=== PATIENT | female | born 1995 | race Caucasian/White ===

== ENCOUNTER → 2016-08-21 | Outpatient (CLI) | payer BC ==
--- NOTE | 2016-08-21 13:30 | EKG ---
[address] [address] Measurements Intervals [place] Rate: 76 P: 45 WY: 173 QRS: 59 QRSD: 86 T: 42 QT: 372 QTc: 402 Interpretive Statements SINUS RHYTHM No previous ECG available for comparison Electronically Signed On 08-21-16 15:45:04 MDT by Wilmer Carroll [id number]
[2016-08-21 14:10] LABS: BASOPHILS # (AUTO) 0.03 10*3/UL; BASOPHILS % (AUTO) 0.5 % (0-1); EOSINOPHILS # (AUTO) 0.03 10*3/UL; EOSINOPHILS % (AUTO) 0.5 % (0-8); HEMATOCRIT 41.5 % (37.0-47.0); HEMOGLOBIN 14.3 g/dL (12.0-16.0); LYMPHOCYTES # (AUTO) 1.14 10*3/uL; MEAN CORPUSCULAR HGB CONC 34.5 g/dL (33-37); MEAN CORPUSCULAR VOLUME 87.2 FL (81-99); MEAN PLATELET VOLUME 10.5 FL (7.4-12.2); MONOCYTES # (AUTO) 0.79 10*3/UL (0.3-0.8); MONOCYTES % (AUTO) 12.5 % (5-15); NEUTROPHILS # (AUTO) 4.31 10*3/UL; NEUTROPHILS % (AUTO) 68.2 % (50-80); RED BLOOD COUNT 4.76 10^6/uL (4.20-5.40)
[2016-08-21 14:12] LABS: PLATELET MORPHOLOGY COMMENT NORMAL MORPHOLOGY (NORM); RBC MORPHOLOGY COMMENT NORMAL MORPHOLOGY (NORM); WBC MORPHOLOGY COMMENT NORMAL MORPHOLOGY (NORM)
[2016-08-21 14:18] LABS: BLOOD UREA NITROGEN 10 mg/dL (7-22); BUN/CREATININE RATIO 14.28 (6-20); CALCIUM 9.1 mg/dL (8.7-10.7); EST GLOMERULAR FILTRATION > 60 (>60 ml/min/1.73m(2)); SERUM ALBUMIN 4.4 g/dL (3.5-4.8)
== END ==
LOC: MOB LAB 13:30
PROVIDERS: ATTEND Physician Assistant Medical
DX: R42 Dizziness and giddiness (principal); R51 Headache
CPT/HCPCS: 36415; 80053; 84443; 85025; 93005; 93010

== ENCOUNTER 2018-02-24 18:52 | Observation (INO) ==
[2018-02-24 20:55] LABS: Hematocrit [HCT] 37.4 % (37.0-47.0); Hemoglobin [HGB] 13.2 g/dL (12.0-16.0); MEAN CORPUSCULAR HEMOGLOBIN 31.1 PG (27-31); MEAN CORPUSCULAR HGB CONC 35.3 g/dL (33-37); MEAN CORPUSCULAR VOLUME 88.2 FL (81-99); MEAN PLATELET VOLUME 10.6 FL (7.4-12.2); RED BLOOD COUNT 4.24 10^6/uL (4.20-5.40)
[2018-02-24] MEDS: Sodium Chloride 0.9% 1,000 ML PRIMARY IV ONE ×2 (21:00→22:00)
[2018-02-24 21:03] LABS: BLOOD UREA NITROGEN 7 mg/dL (7-22); BUN/CREATININE RATIO 11.66 (6-20); SERUM ALBUMIN 3.2 g/dL (3.5-4.8); Uric Acid 4.8 mg/dl (2.5-6.2)
[2018-02-24] MEDS ORDERED: TERBUTALINE SULFATE 1 MG/1 ML SDV ONE (23:49)
[2018-02-24] MEDS ORDERED: TERBUTALINE SULFATE 1 MG/1 ML SDV SUBCUT ONE (23:49)
[2018-02-25] MEDS ORDERED: LIDOCAINE W/ SODIUM BICARB 0.5 ML SYR SUBD PRN (07:25)
[2018-02-25] MEDS ORDERED: CALCIUM CARBONATE 500 MG (TUMS) CHEWABLE TABLET PO PRN (07:25)
[2018-02-25] MEDS ORDERED: Ondansetron ODT Tab 4 MG TAB PO PRN (07:25)
--- NOTE | 2018-02-25 07:25 | OB.PROGRES ---
Date of Service: 02/25/18 Interval History: The patient is a 22-year-old LMP is at 35 and one sevenths week who has an TRAY of 03/31/2018 by her LMP but also has a due date of 04/05/2018 by an ultrasound done several weeks ago in [place], [place]. The patient has a history during this and proteinuria and also edema of . Last evening, the patient presented to labor and delivery with the complaint of increased swelling and pelvic pain and contractions. No headache. No right upper quadrant pain. No blurred vision. The patient's initial blood pressure was 150/84 and next blood pressure was 144/ 95. The patient was also found to be steve with a category 1 heart rate tracing. IV fluids were administered and then the patient was given 1 dose of subcutaneous terbutaline to try to stop the contractions. Overnight, the patient has not developed a headache. The patient states that her cramping is slightly decreased. No vaginal bleeding. No leak of fluid. Baby has been moving. Patient was just seen 2 days ago in labor and delivery after seeing me in clinic. The patient stated that she had not been feeling well for a week. Nonstress test was reactive, ultrasound showed a normal JUSTIN and a growth scan which was scheduled for tomorrow was also completed 2 days ago and was the 89th percentile with EFW just slightly less than 3000 g or 6 lbs. 9 oz. Previously, a growth scan was completed and the EFW was 90th percentile. Past medical history noncontributory Past surgical history wisdom teeth extraction The patient states that she is allergic to antihistamines. She gets swelling and redness and also she becomes overly sedated. No tobacco, occasional alcohol before finding out she was . None since. No drugs. The patient believes she had a Pap smear prior to her IUD placed. IUD was removed last year and then several months later she conceived. No significant family history problems Objective - Cervical Exam Cervical Exam: Fingertip, soft, I could not determine effacement. By Salvador's , the baby is in cephalic presentation [place]: Irregular contractions Heart Rate Interpretation Category: Category I - Labs CBC and BMP: 02/24/18 20:48 02/24/18 20:48 - Vital Signs Last Taken Vital Signs: Vital Signs - Last Taken Temperature 98.0 F 02/24/18 19:07 Pulse Rate 92 02/24/18 19:40 Respiratory Rate 18 02/24/18 19:07 Blood Pressure 144/95 02/24/18 19:40 Pulse Ox 98 02/24/18 19:07 - Additional Details Additional Details: Lungs clear to auscultation Heart regular rate and rhythm Abdomen is gravid, soft, nontender, no guarding or rebound. Extremities have 2+ pitting edema bilaterally, no Homans, Reflexes are 3+ bilaterally. No clonus. The patient definitely appears edematous and the patient complains of edema in her hands and arms also. Assessment and Plan - Assessment / Plan Additional Assessment/Plan Details: Assessment: IUP 35-06/07 week with preeclampsia without signs or symptoms of severe preeclampsia currently. Labs show hemoconcentration with an H&H of 13 and 37 and platelets are normal, liver function tests are normal and creatinine is 0.6. Blood pressures 150/84, 144/95, 143/86, 121/88, and then patient has also had some normal blood pressures of 124/83 and 127/75 and 119/81 while in bed in the left lateral supine position or right lateral supine position. The patient does not have a headache or right upper quadrant pain. Patient did have significant contractions last night and IV fluids and one dose of subcutaneous terbutaline has decreased the frequency. The patient's cervix is only a fingertip dilated. The patient has not been feeling well intermittently for several weeks and presented 2 days ago not feeling well for previous week. Labs were completed and the patient showed hemoconcentration but otherwise normal. Platelets were normal. Liver function tests were normal and blood pressures were normal at that time. Reactive nonstress test. EFW is the 89th 90th percentile with the last EFW just slightly less than 3000 g or 6 lbs. 9 oz. which was completed 2 days ago on 02/23/2018. Plan: The patient will be admitted for observation Betamethasone 12 mg IM now and then repeat in 24 hours. The patient and I discussed the indication for the betamethasone for lung maturity. This baby is thought to be a girl. We discussed that there are minimal risk for steroid administration for 1 course. lung maturity may improved with the administration. Additionally necrotizing enterocolitis and interventricular hemorrhage risks can be improved but these do not occur as frequently in a late versus an early infant. This was explained to the patient. Also the patient may have some difficulty sleeping secondary to the steroid administration. The patient expressed understanding. Repeat labs in the morning Initially, clear liquids but regular diet if the blood pressures remain stable. I will not tocolyse the patient currently since I do not want to mask severe blood pressures. Also, the patient's cervix is a fingertip dilated. I did discuss with the patient that if she were to go into labor or develops preeclampsia with severe signs or symptoms at 35+ weeks that I would speak with pediatrics but most likely the patient will be transferred to [facility] where there is a NICU. The patient expressed understanding. The patient expressed understanding with the above plan and indications for admission for observation and for the [place] and for blood pressure observation.
[2018-02-25] MEDS ORDERED: Lactated Ringers 1,000 ML PRIMARY IV SCH (07:30)
[2018-02-25] MEDS: BETAMET ACET/BETAMET NA PH 6 MG/1 ML - 5 ML IM SCH (08:01)
[2018-02-25] MEDS: Lactated Ringers 1,000 ML PRIMARY IV SCH (14:21)
[2018-02-25] MEDS: ONDANSETRON 4 MG/2 ML VIAL IVP PRN (15:54)
[2018-02-25 16:06] VITALS: RESP 16
[2018-02-25] MEDS ORDERED: ACETAMINOPHEN 500 MG TABLET PO PRN (17:10)
[2018-02-26] MEDS: Lactated Ringers 1,000 ML PRIMARY IV SCH (01:30)
[2018-02-26] MEDS: ONDANSETRON 4 MG/2 ML VIAL IVP PRN (03:59)
[2018-02-26 04:49] LABS: Hematocrit [HCT] 35.2 % (37.0-47.0); Hemoglobin [HGB] 12.1 g/dL (12.0-16.0); MEAN CORPUSCULAR HEMOGLOBIN 30.6 PG (27-31); MEAN CORPUSCULAR HGB CONC 34.4 g/dL (33-37); MEAN CORPUSCULAR VOLUME 89.1 FL (81-99); MEAN PLATELET VOLUME 10.6 FL (7.4-12.2); RED BLOOD COUNT 3.95 10^6/uL (4.20-5.40)
[2018-02-26 04:55] VITALS: TEMP 97.6
[2018-02-26 05:20] LABS: BLOOD UREA NITROGEN 5 mg/dL (7-22); Uric Acid 4.2 mg/dl (2.5-6.2)
[2018-02-26 06:44] VITALS: BP 115/61
[2018-02-26 06:47] VITALS: O2SAT 99
[2018-02-26] MEDS: BETAMET ACET/BETAMET NA PH 6 MG/1 ML - 5 ML IM SCH (07:33)
[2018-02-26] MEDS ORDERED: Prenatal Multivitamin Tab 1 TAB TAB PO SCH (09:00)
--- NOTE | 2018-02-26 10:37 | OB.PROGRES ---
Date of Service: 02/26/18 Interval History: The patient states that she is doing okay. She has had an occasional headache over the past 24 hours but Tylenol helped resolve it. No right upper quadrant pain. She has noted that her left arm and hand is swollen. They did attempt to do an IV in her left hand before the left antecubital vein was obtained. The patient states that her left arm is much more swollen than her right arm. The patient also has noticed increase in swelling in her legs in the nurse informed me that the patient had a 5 pound weight gain from admission to this morning. The patient is drinking well. The patient continues to have intermittent contractions. No bleeding. No leak of fluid. Some lower back pain with contractions and sometimes the back pain is constant. The patient is concerned about going home secondary to not knowing if her blood pressures are elevating but also secondary to her contractions. Objective - Cervical Exam Cervical Exam: Finger Tip and soft. [place]: Intermittent runs of contractions but otherwise irregular Heart Rate Interpretation Category: Category I - Labs CBC and BMP: 02/26/18 04:25 02/26/18 04:25 - Vital Signs Last Taken Vital Signs: Vital Signs - Last Taken Temperature 97.6 F 02/26/18 04:00 Pulse Rate 100 02/26/18 06:20 Respiratory Rate 16 02/26/18 04:00 Blood Pressure 115/61 02/26/18 06:00 Pulse Ox 99 02/26/18 06:20 - Additional Details Additional Details: Lungs clear to auscultation Heart regular rate and rhythm Abdomen is gravid, soft, nontender, by Salvador's cephalic presentation. Lower Extremities with 2+ pitting edema bilaterally. Left upper extremity with edema in the hand dorsally and the forearm compared to the right upper extremity; no pitting edema but definitely edematous. Reflexes 3+ bilaterally patellar and no clonus Negative Homans and lower extremities Assessment and Plan - Assessment / Plan Additional Assessment/Plan Details: Assessment: IUP 35-2/7 weeks with preeclampsia without signs or symptoms of severe preeclampsia. Blood pressures have been normal on the left sided or right sided bedrest. The patient had one blood pressure of 149/87. No blood pressures 160/110 or above. Most blood pressures have been in the normal range. The patient has had intermittent mild headaches but resolved with Tylenol. Labs this morning show that the platelets are 185,000 which is decreased but still normal. H&H is 12 and 35 which is slightly improved hemoconcentration from admission. Creatinine is 0.4 which is normal and slightly decreased from admission. Liver function tests are normal. The patient's cervix has not really changed from yesterday morning's exam 2 this morning even though the patient has had intermittent contractions. Most likely, the contractions or uterine irritability since the patient's cervix is not changing. The patient's left upper extremity is edematous. I doubt that there is a DVT but I'm going to get an ultrasound since it is significantly more edematous than the right upper extremity. The patient's lower extremities are symmetric. Plan: I would like to get an ultrasound of the patient's left upper extremity to rule out a DVT. I realized that this is unlikely but the left upper extremity is much more edematous than the right upper extremity. The Patient's IV will be discontinued. I spoke with the patient about continuing to observe the patient for one more day versus sending the patient home on bedrest with bathroom privileges. The patient relates that she is concerned about her blood pressures but also about her contractions. I informed the patient that I was more concerned about her blood pressures but we would follow her blood pressures closely and the patient would be given strict precautions to look for and observe for an return if those symptoms occur. With respect to the contractions, I informed the patient that I was not as concerned with these since the patient's cervix did not change but if the patient started to have regular contractions that were painful that were not resolving, the patient should present to labor and delivery. The patient expressed understanding. We will check with the patient's insurance to determine if they would allow us to observe the patient for one more day in the hospital to observe the patient' s blood pressures since the patient does have a diagnosis of preeclampsia. I would obtain labs tomorrow morning if the patient did stay.
--- NOTE | 2018-02-26 14:05 | DI ---
DOPPLER ULTRASOUND OF THE LEFT UPPER EXTREMITY,02/26/2018 10:43 AM: Clinical History: Left upper extremity edema, IUP 35 2/7 wks Previous Exam: None at this facility. Technique: 2D real-time imaging is supplemented with color Doppler ultrasound from the proximal forea rm to the subclavian vein. Compression maneuvers and augmentation with the "sniff" technique and the Valsalva maneuver are performed. The deep venous system from the proximal forearm to the subclavian vein is normal. The cephalic vein is also normal. Reading: Normal venous Doppler ultrasound of the left upper extremity.
--- NOTE | 2018-02-26 17:10 | OB.PROGRES ---
Objective - Labs CBC and BMP: 02/26/18 04:25 02/26/18 04:25 - Vital Signs Last Taken Vital Signs: Vital Signs - Last Taken Temperature 97.6 F 02/26/18 04:00 Pulse Rate 100 02/26/18 07:00 Respiratory Rate 16 02/26/18 04:00 Blood Pressure 115/61 02/26/18 06:00 Pulse Ox 99 02/26/18 06:20 Assessment and Plan - Assessment / Plan Additional Assessment/Plan Details: The patient's Doppler of her left upper extremity was negative for DVT. The patient desired to go home and was sent home with strict precautions and return tomorrow morning for a nonstress test and blood pressure checks.
--- NOTE | 2018-02-26 17:14 | DCSUMMARY ---
Hospitalization Summary Admit Date: 02/25/18 Discharge Date: 02/26/18 Primary Diagnosis:: IUP 35-2/7 weeks, preeclampsia Secondary Diagnosis:: Preeclampsia without signs or symptoms of severe preeclampsia contractions Primary Surgery and Date: Patient undelivered. Hospital Course: Assessment: IUP 35-2/7 weeks with preeclampsia without signs or symptoms of severe preeclampsia. Blood pressures have been normal on the left sided or right sided bedrest. The patient had one blood pressure of 149/87. No blood pressures 160/110 or above. Most blood pressures have been in the normal range. The patient has had intermittent mild headaches but resolved with Tylenol. Labs this morning show that the platelets are 185,000 which is decreased but still normal. H&H is 12 and 35 which is slightly improved hemoconcentration from admission. Creatinine is 0.4 which is normal and slightly decreased from admission. Liver function tests are normal. The patient's cervix has not really changed from yesterday morning's exam 2 this morning even though the patient has had intermittent contractions. Most likely, the contractions or uterine irritability since the patient's cervix is not changing. The patient's left upper extremity is edematous. I doubt that there is a DVT but I'm going to get an ultrasound since it is significantly more edematous than the right upper extremity. The patient's lower extremities are symmetric. Plan: I would like to get an ultrasound of the patient's left upper extremity to rule out a DVT. I realized that this is unlikely but the left upper extremity is much more edematous than the right upper extremity. The Patient's IV will be discontinued. I spoke with the patient about continuing to observe the patient for one more day versus sending the patient home on bedrest with bathroom privileges. The patient relates that she is concerned about her blood pressures but also about her contractions. I informed the patient that I was more concerned about her blood pressures but we would follow her blood pressures closely and the patient would be given strict precautions to look for and observe for an return if those symptoms occur. With respect to the contractions, I informed the patient that I was not as concerned with these since the patient's cervix did not change but if the patient started to have regular contractions that were painful that were not resolving, the patient should present to labor and delivery. The patient expressed understanding. We will check with the patient's insurance to determine if they would allow us to observe the patient for one more day in the hospital to observe the patient' s blood pressures since the patient does have a diagnosis of preeclampsia. I would obtain labs tomorrow morning if the patient did stay. Exam - Vitals Vital Signs: Vital Signs Temperature 97.6 F Temperature Source Oral Pulse Rate [Pulse Oximeter] 100 Pulse Rate 111 Respiratory Rate 16 Blood Pressure [Right Arm] 115/61 Pulse Ox 99 Oxygen Delivery Method Room Air Height 5 ft 4 in Weight 227 lb 6.4 oz
== END 2018-02-26 14:10 | disposition home or self-care (01) ==
LOC: OBOP 18:52 → OBIP 18:52
PROVIDERS: ADMIT Obstetrics & Gynecology; ATTEND Obstetrics & Gynecology

== ENCOUNTER 2018-03-09 09:14 | Inpatient (IN) ==
[2018-03-09] MEDS ORDERED: FAMOTIDINE 20 MG/2 ML VIAL IVP PRN ×2 (15:05)
[2018-03-09] MEDS ORDERED: BUTORPHANOL TARTRATE 2 MG/1 ML VIAL IVP PRN (15:05)
[2018-03-09] MEDS ORDERED: Zolpidem Tab 5 MG TAB PO PRN (15:05)
[2018-03-09] MEDS ORDERED: Carboprost Inj 250 MCG/ML AMP IM PRN (15:05)
[2018-03-09] MEDS ORDERED: CefOXitin Inj 2 GM in Sodium Chloride 0.9% 100 ML IV PRN (15:05)
[2018-03-09] MEDS ORDERED: CITRIC ACID/SODIUM CITRATE 30 ML CUP PO PRN (15:05)
[2018-03-09] MEDS ORDERED: Phenylephrine Inj 50 MCG in Normal Saline Flush 0.5 ML IVP PRN (15:05)
[2018-03-09] MEDS ORDERED: Naloxone Inj 0.01 MG in Normal Saline Flush 1 ML IVP PRN (15:05)
[2018-03-09] MEDS ORDERED: Nalbuphine Inj 20 MG/ML Ampule IVP PRN (15:05)
[2018-03-09] MEDS ORDERED: TERBUTALINE SULFATE 1 MG/1 ML SDV SUBCUT PRN (15:05)
[2018-03-09] MEDS ORDERED: METHYLERGONOVINE MALEATE 0.2 MG/1 ML VIAL IM PRN (15:05)
[2018-03-09] MEDS ORDERED: Metoclopramide Inj 10 MG/2 ML VIAL IV PRN (15:05)
[2018-03-09] MEDS ORDERED: fentaNYL Inj 100 MCG/2 ML VIAL IV PRN (15:05)
[2018-03-09] MEDS ORDERED: ePHEDrine Inj 5 MG in Normal Saline Flush 1 ML IVP PRN (15:05)
[2018-03-09] MEDS ORDERED: CALCIUM CARBONATE 500 MG (TUMS) CHEWABLE TABLET PO PRN (15:05)
[2018-03-09] MEDS ORDERED: ONDANSETRON 4 MG/2 ML VIAL IVP PRN (15:05)
[2018-03-09] MEDS ORDERED: Lidocaine 1% 10 MG/ML - 20 ML VIAL SUBCUT PRN (15:05)
[2018-03-09] MEDS ORDERED: NALOXONE 0.4 MG/1 ML VIAL IVP PRN (15:05)
[2018-03-09] MEDS ORDERED: LIDOCAINE HCL 2 % 10 ML JELLY URO-JECT TOPICAL PRN (15:05)
[2018-03-09] MEDS ORDERED: MISOPROSTOL 200 MCG TABLET RECTAL PRN (15:05)
[2018-03-09] MEDS ORDERED: diphenhydrAMINE 50 MG/1 ML VIAL IVP PRN (15:05)
[2018-03-09] MEDS ORDERED: LIDOCAINE W/ SODIUM BICARB 0.5 ML SYR SUBD PRN (15:05)
[2018-03-09] MEDS ORDERED: OXYTOCIN 10 UNIT/1 ML IM PRN (15:05)
[2018-03-09] MEDS ORDERED: Oxytocin 20 Units + LR 20 UNIT/1,000 ML BAG IV SCH (15:15)
[2018-03-09 16:03] LABS: Hematocrit [HCT] 39.5 % (37.0-47.0); Hemoglobin [HGB] 14.2 g/dL (12.0-16.0); MEAN CORPUSCULAR HEMOGLOBIN 31.3 PG (27-31); MEAN CORPUSCULAR HGB CONC 35.9 g/dL (33-37); MEAN PLATELET VOLUME 10.8 FL (7.4-12.2); RED BLOOD COUNT 4.54 10^6/uL (4.20-5.40)
[2018-03-09] MEDS: Misoprostol Tab 100 MCG TAB VAGINAL PRN (16:14)
[2018-03-09] MEDS: Lactated Ringers-OB Dept 1,000 ML PRIMARY IV SCH (16:46)
--- NOTE | 2018-03-09 17:32 | OB.PROGRES ---
Date of Service: 03/09/18 Interval History: The patient is a 23-year-old at 36-6/7 weeks admitted for cervical ripening and induction of labor secondary to preeclampsia without signs or symptoms of severe preeclampsia. The patient denies right upper quadrant pain or headache. The patient's has essentially been uncomplicated until she developed edema then proteinuria and recently elevated blood pressures. The patient was admitted less than 2 weeks ago and was administered a course of betamethasone for lung maturity. At that time the patient did not have severe blood pressures but the patient's blood pressures were labile but never in the severe range. The patient now presents for cervical ripening and induction of labor secondary to the above. The patient has also been measuring size greater than dates and the last EFW was 2 weeks ago and measuring 3000 g or about 6 lbs. 9 oz. Over the past week and a half to 2 weeks the patient has been on couch rest at home and actually has lost 10 pounds of fluid. Past medical history noncontributory Past surgical history wisdom teeth extraction The patient states that she is allergic to antihistamines. She gets swelling and redness. Also oversedation. No tobacco, occasional alcohol before finding out she was . None since. No drugs. The patient believes she had a Pap smear prior to her IUD placed. IUD was removed last year and then several months later she conceived. No significant family history problems. Objective - Cervical Exam Cervical Exam: 50/-2 cephalic [place]: After Cytotec administration there is uterine irritability present Heart Rate Interpretation Category: Category I - Labs CBC and BMP: 03/09/18 15:05 - Vital Signs Last Taken Vital Signs: Vital Signs - Last Taken Temperature 97.5 F 03/09/18 15:42 Pulse Rate 104 H 03/09/18 15:42 Respiratory Rate 18 03/09/18 15:42 Blood Pressure 138/69 03/09/18 15:42 Pulse Ox 98 03/09/18 15:42 - Additional Details Additional Details: Lungs clear to auscultation Heart regular rate and rhythm Abdomen is soft, gravid, nontender Patellar reflexes bilaterally were 2+ No clonus 1+ to 2+ edema bilaterally lower extremity Assessment and Plan - Assessment / Plan Additional Assessment/Plan Details: Assessment: IUP 36-6/7 weeks with preeclampsia without signs or symptoms of severe preeclampsia. Patient was admitted today for cervical ripening. Cervix was 1 cm/50%/-2 station. EFW has been around the 90th percentile. Plan: Patient admitted for cervical ripening with Cytotec I have discussed with the patient that the baby is fairly high and hasn't been in the mom's pelvis. I have discussed with the patient that we will see how cervical ripening does and how induction of labor goes with respect to a possible vaginal delivery. We have discussed that there is a slightly increased risk for section secondary to induction of labor but also secondary to the estimated weight percentile 90th percentile. The patient 's mother has had 4 sections. A CBC and CMP as well as type and screen were completed. The patient's H&H is 14 and 39 and the patient's platelets are normal at 242. CMP is pending. In my office we have discussed the risks, benefits, alternatives and indication of a section. SCDs while in bed
[2018-03-09 17:38] LABS: BLOOD UREA NITROGEN 8 mg/dL (7-22); SERUM ALBUMIN 3.6 g/dL (3.5-4.8)
[2018-03-10] MEDS: Lactated Ringers-OB Dept 1,000 ML PRIMARY IV SCH ×2 (01:56→18:22)
--- NOTE | 2018-03-10 08:27 | OB.PROGRES ---
Date of Service: 03/10/18 Interval History: The patient can feel some cramping but no significant contractions. She slept intermittently last night. No headache. No right upper quadrant pain. Baby is moving. Objective - Cervical Exam Cervical Exam: 1-2/50/-3. Minimal dark blood on my glove digit after exam. Membranes could not be swept because the internal os could not be palpated well [place]: Irritability Heart Rate Interpretation Category: Category I - Labs CBC and BMP: 03/09/18 15:05 03/09/18 16:45 - Vital Signs Last Taken Vital Signs: Vital Signs - Last Taken Temperature 97.6 F 03/10/18 07:30 Pulse Rate 79 03/10/18 07:30 Respiratory Rate 18 03/10/18 07:30 Blood Pressure 117/75 03/10/18 07:30 Pulse Ox 99 03/10/18 07:30 Assessment and Plan - Assessment / Plan Additional Assessment/Plan Details: Assessment: IUP 37 weeks with preeclampsia without signs or symptoms of severe preeclampsia. The patient's blood pressures have been normal. Labs yesterday were normal except for H&H was hemoconcentrated. Normal liver function tests and normal renal function tests. Normal platelets. Cervical ripening with 1 dose of Cytotec allow for uterine irritability for many hours but minimal cervical change. Group B strep negative EFW was 90th percentile Plan: Cytotec 25 g will be placed this morning after the patient showers Continue cervical ripening The patient and I have discussed that cervical ripening and induction of labor can take several days. Patient expressed understanding.
[2018-03-10] MEDS: Misoprostol Tab 100 MCG TAB VAGINAL PRN (09:22)
--- NOTE | 2018-03-10 15:01 | OB.PROGRES ---
Objective - Labs CBC and BMP: 03/09/18 15:05 03/09/18 16:45 - Vital Signs Last Taken Vital Signs: Vital Signs - Last Taken Temperature 98 F 03/10/18 11:30 Pulse Rate 101 H 03/10/18 10:35 Respiratory Rate 18 03/10/18 11:30 Blood Pressure 119/69 03/10/18 10:35 Pulse Ox 98 03/10/18 11:00 Assessment and Plan - Assessment / Plan Additional Assessment/Plan Details: IUP 37 weeks with preeclampsia without signs or symptoms of severe preeclampsia. Cytotec for cervical ripening. Patient received her second dose this morning and currently she is steve regularly and can feel them but they do not hurt. Patient states she is doing well. Cervix not checked currently. Blood pressures have been good. Plan: I will check the patient's cervix after my office hours. Reevaluate at that time.
--- NOTE | 2018-03-10 17:01 | OB.PROGRES ---
Interval History: The patient states she can feel some contractions but they are not painful. No headache. No right upper quadrant pain. Objective - Cervical Exam Cervical Exam: 1-250/-3. I could not reach the baby's head but the baby is in the cephalic presentation. Heart Rate Interpretation Category: Category I - Labs CBC and BMP: 03/09/18 15:05 03/09/18 16:45 - Vital Signs Last Taken Vital Signs: Vital Signs - Last Taken Temperature 98.1 F 03/10/18 14:45 Pulse Rate 84 03/10/18 14:45 Respiratory Rate 18 03/10/18 14:45 Blood Pressure 119/69 03/10/18 10:35 Pulse Ox 98 03/10/18 14:45 Assessment and Plan - Assessment / Plan Additional Assessment/Plan Details: Assessment: IUP 37 weeks with no change in her cervix with cervical ripening. Second dose of Cytotec this morning is still allowing for contractions every 3 minutes to sometimes every 3-5 minutes. Plan: If contractions space out, another dose of Cytotec 25 g will be applied. I did speak with the patient that her cervix is not changed and the baby's head is not in her pelvis currently. Currently, the plan is to continue cervical ripening. We did speak briefly about section. The patient's vital signs are normal and the patient does not have any symptoms. Labs this morning were normal. I will check labs again in the morning.
[2018-03-10] MEDS ORDERED: LIDOCAINE W/ SODIUM BICARB 0.5 ML SYR SUBD PRN (18:18)
[2018-03-10] MEDS ORDERED: fentaNYL Inj 100 MCG/2 ML VIAL IVP PRN (18:18)
[2018-03-10] MEDS ORDERED: HYDROmorphone 2 MG/1 ML IVP PRN (18:18)
--- NOTE | 2018-03-10 18:20 | CRNA.PROGR ---
Anesthesia Recovery Phase I - Post Anesthesia Evaluation Patient's Condition on Arrival in Phase I: Stable Patient's Condition on Arrival in Phase II: Stable Pain Level: 0
--- NOTE | 2018-03-10 18:20 | CRNA.PROGR ---
Anesthesia Time - Procedure/Recovery Time Start Date: 03/10/18 End Date: 03/10/18 Anesthesia : Time In: 18:44 Anesthesia : Time Out: 19:58 Anesthesia : Total Time: 74 - Total Anesthesia Time Total Anesthesia Time (minutes): 74 - Other Weight: 99.427 kg Height: 5 ft 4 in Body Mass Index (BMI): 37.6 Physical Status: P2 Anesthesia Type: Spinal Block
--- NOTE | 2018-03-10 18:20 | CRNA.PROGR ---
Post Anesthesia Phase II - Post Anesthesia Phase II Patient Stable and Discharged To: OB Care Assumed By Surgeon: Krishna Manning MD Temperature: 98 F Respiratory Rate: 18 Pulse Ox: 98
[2018-03-10] MEDS ORDERED: Sodium Chloride 0.9% vial 10 ML ONE ×2 (18:25→18:27)
[2018-03-10] MEDS ORDERED: PHENYLEPHRINE 10,000 MCG/1 ML VIAL ONE (18:25)
[2018-03-10] MEDS ORDERED: ePHEDrine Inj 50 MG/ML AMP ONE (18:25)
--- NOTE | 2018-03-10 18:27 | OB.PROGRES ---
Interval History: The patient has decided that she would like a section. Patient states that she has not changed her cervix really and realizes that the baby is high in her pelvis. Also, her mother had 4 sections. The patient is comfortable with the section and the patient has decided that she would like a section. Objective - Cervical Exam Sehili: Contractions every 3-4 minutes secondary to Cytotec from this morning Heart Rate Interpretation Category: Category I - Labs CBC and BMP: 03/09/18 15:05 03/09/18 16:45 - Vital Signs Last Taken Vital Signs: Vital Signs - Last Taken Temperature 98 F 03/10/18 18:20 Pulse Rate 86 03/10/18 16:00 Respiratory Rate 18 03/10/18 18:20 Blood Pressure 107/70 03/10/18 14:00 Pulse Ox 98 03/10/18 18:20 Assessment and Plan - Assessment / Plan Additional Assessment/Plan Details: Assessment: IUP 37 weeks with preeclampsia without signs or symptoms of severe preeclampsia. Blood pressures have been normal. Category 1 heart rate tracing. The patient has been undergoing cervical ripening since late last afternoon. However, she is only received 2 doses of Cytotec secondary to the Cytotec causing numerous contractions but not painful contractions. There has been little cervical change from 1 cm to 1-2 cm but the baby is still at -3 station. The patient informed the nurse and myself after I saw the patient earlier that she decided that she would like a section. Plan: I discussed with the patient that her cervical ripening is still in the early process but I also discussed with the patient that the baby's head is at - 3 station and not engaged. Also we discussed the fact that the EFW was the 89th or 90th percentile. I discussed that I was very comfortable continuing cervical ripening even for another couple days. But I was also comfortable with her decision if she truly wanted a section. I discussed the risks, benefits, alternatives and indications with the patient. The risk, but not limited to, of infection, bleeding, pain, serious infection requiring multiple surgeries and possible transfer to a tertiary care hospital and opening up her incision and a wound VAC for wound care was discussed with the patient. The risk of bleeding with possible blood transfusion and possible hysterectomy were discussed with the patient meaning that the patient could have no more children if she were to have a hysterectomy. Damage to bowel, bladder, nerve, vessel, ureter, nicking the baby were all discussed with the patient in detail. Blood clots to the legs or lungs was discussed with the patient. Possible transfer of the baby to a NICU secondary to respiratory distress or other indications was discussed with the patient. The low risk of was discussed with the patient. The patient expressed understanding and wanted a section. I did discuss the possibility of having the section in the morning since she was stable and her labs were normal and her blood pressures were okay in case we needed to transfer the baby to [place], [place]. The patient expressed understanding but stated that she would like the section tonight since it was her mindset that she would have the tonight. The operating room crew was called in.
[2018-03-10] MEDS ORDERED: Lactated Ringers 1,000 ML PRIMARY IV SCH (18:30)
--- NOTE | 2018-03-10 18:32 | OB.OP.NOTE ---
Operative Report Surgeon: Nigel Backup Administrative Coordinator: Kirby Abreu MD Anesthesia Type: Regional (Spinal With Duramorph) Anesthesia Provider: Anita Patterson CRNA Surgery Date: 03/10/18 Preoperative Diagnosis: IUP 37 weeks. preeclampsia without signs or symptoms of severe preeclampsia. Patient desires primary low transverse section. Unsuccessful cervical ripening for induction of labor Postoperative Diagnosis: Same Estimated Blood Loss (mL): 650 Fluids: 1500 mL LR. 150 mL clear yellow urine. Mefoxin 2 g IV preoperatively Complications: None apparent Findings at Surgery: Female infant with Apgars 6 and 7 Weight 7 lbs. 4 oz. ABG showed a pH of 7.361, PCO2 of 42.8, HCO3 of 24.3, base excess -1 Normal appearing uterus, normal ovaries, normal fallopian tubes Indications for the Procedure: IUP 37 weeks with preeclampsia without signs or symptoms of severe preeclampsia. Blood pressures have been normal. Category 1 heart rate tracing. The patient has been undergoing cervical ripening since late last afternoon. However, she is only received 2 doses of Cytotec secondary to the Cytotec causing numerous contractions but not painful contractions. There has been little cervical change from 1 cm to 1-2 cm but the baby is still at -3 station. The patient informed the nurse and myself after I saw the patient earlier that she decided that she would like a section. Plan: I discussed with the patient that her cervical ripening is still in the early process but I also discussed with the patient that the baby's head is at - 3 station and not engaged. Also we discussed the fact that the EFW was the 89th or 90th percentile. I discussed that I was very comfortable continuing cervical ripening even for another couple days. But I was also comfortable with her decision if she truly wanted a section. I discussed the risks, benefits, alternatives and indications with the patient. The risk, but not limited to, of infection, bleeding, pain, serious infection requiring multiple surgeries and possible transfer to a tertiary care hospital and opening up her incision and a wound VAC for wound care was discussed with the patient. The risk of bleeding with possible blood transfusion and possible hysterectomy were discussed with the patient meaning that the patient could have no more children if she were to have a hysterectomy. Damage to bowel, bladder, nerve, vessel, ureter, nicking the baby were all discussed with the patient in detail. Blood clots to the legs or lungs was discussed with the patient. Possible transfer of the baby to a NICU secondary to respiratory distress or other indications was discussed with the patient. The low risk of was discussed with the patient. The patient expressed understanding and wanted a section. I did discuss the possibility of having the section in the morning since she was stable and her labs were normal and her blood pressures were okay in case we needed to transfer the baby to [place], [place]. The patient expressed understanding but stated that she would like the section tonight since it was her mindset that she would have the tonight. Description of Procedure: The patient was taken to the operating room after the risks, benefits, alternatives and indications of a repeat section were discussed with the patient in detail. Consent forms were signed previously. The risk, but not limited to, of infection, bleeding, pain postoperatively or intraoperatively , bleeding, hemorrhage requiring blood transfusion with associated risks, hysterectomy secondary to hemorrhage or infection postoperatively, damage to bowel, bladder, nerve, vessel, ureter, nicking the baby, serious infection requiring antibiotics postoperatively and possible transfer to a tertiary care hospital, the need to transfer the baby to a tertiary care hospital for intensive care unit care secondary to lung immaturity or extremely labile glucoses or temperature instability were discussed with the patient. This would also means separation of the patient from her infant since the patient would be here at [facility] post a and the baby would be in [place], [place] for NICU care. Additionally, blood clots to the legs or lungs and the low risk of was discussed with the patient. The patient expressed understanding with the above. Consent forms have been signed previously. The patient underwent spinal anesthesia in the usual fashion. heart tones were checked and they were normal. The patient was prepped. Martel catheter was placed. The patient was then draped sterilely. The patient was tested and anesthesia was found to be adequate. A Pfannenstiel skin incision over the old scar site was made. The subcutaneous tissue was bovied to the fascia. The fascia was nicked in the midline and extended laterally bilaterally using the Yankauer retractor to elevate the fascia off of the rectus muscles. Mayte clamps were then placed on either side of the midline on the fascia superiorly and the rectus muscles were dissected off of the fascia using the Bovie and bluntly. The same was done for the fascia inferiorly. The rectus muscles were gently . The peritoneum was then entered bluntly. The peritoneum was then stretched. I then placed my hand intra- abdominally to check for adhesions between the uterus and the anterior abdominal wall and there were none. The Esteban retractor was then placed. The lower uterine segment of the uterus was then evaluated. A bladder flap was created using Metzenbaum scissors and pickups. A low transverse uterine incision was then made. Amniotomy was performed and there was clear amniotic fluid. The lower uterine segment was then stretched. I then placed my hand intrauterine along the baby's head and then deliver the head atraumatically. The mouth and nose were bulb suctioned after delivery of the infant. The 's posterior shoulder was then delivered and then the anterior shoulder and then the . Delayed cord clamping was allowed for for greater than 30 seconds. The cord was then clamped and cut and the baby was handed off to the waiting nurses and tester vibrator equipment. A section of cord was then clamped and cut for cord gases and then cord blood was obtained. The placenta was then delivered with manual retraction. Membranes were teased and removed. The uterus was then exteriorized. The uterine incision was then examined. The uterus incision was then closed with 0 Vicryl in a running locking fashion. A second layer was then imbricated with 0 Vicryl suture. One [id number] suture was placed on the right angle of the uterine incision. Good hemostasis. There appeared to be good hemostasis of the uterine incision. The fallopian tubes and ovaries were then examined. Attention was then turned to the patient's uterine incision again and there was good hemostasis. Irrigation posterior to the uterus and then was suctioned. The uterus was then placed back into the abdomen. The patient's right paracolic gutter was then irrigated and suctioned. Good hemostasis noted. The patient's left paracolic gutter was then irrigated and suctioned. Good hemostasis. The uterine incision was then examined again and irrigated. There appeared to be good hemostasis. The peritoneum was then identified and closed from cephalad to caudal with 3-0 Vicryl suture in a running fashion. The patient's fascia was then examined. Subfascially there was good hemostasis. The fascia was then closed with 0 Vicryl suture starting from the left side and to just past the midline and then starting at the right angle and then going to meet the other fascial suture. The 2 sutures were tied together. The fascia appeared to be intact. Each individual fascial suture was tied but then the sutures were tied together. The subcutaneous tissue was then examined and there were a few bleeders that were bovied. The subcutaneous tissue was then irrigated and then suctioned. The subcutaneous tissue was then closed with 3-0 Vicryl suture in a running fashion. The skin was then examined and a few areas were bovied. The incision was cleaned with a moist lap sponge. The skin was then closed with 3-0 Stratafix suture and a subcuticular fashion starting in the midline and working towards the left side and right side. The incision appeared to be well approximated. Skin prep and then half-inch Steri-Strips were placed over the incision. Sponge, instrument, and needle count were correct 2 The radiofrequency wand was also used to ensure that the count was correct. Silverlon dressing was placed over the Steri-Stripped incision site and then an ABD pad and then paper tape. A vaginal exam was then completed and the uterus was expressed of any clot or debris. The patient was cleaned. Martel catheter was secured. The patient was then brought to the PACU in stable condition. Plan: The patient will be observed in the PACU and then in her room. Blood pressures will be followed. Gestational hypertension panel be drawn in the morning.
[2018-03-10] MEDS ORDERED: MORPHINE SULFATE/PF 10 MG/10 ML AMPULE ONE (18:35)
[2018-03-10 18:37] LABS: BASOPHILS # (AUTO) 0.02 10*3/UL; BASOPHILS % (AUTO) 0.1 % (0-1); EOSINOPHILS # (AUTO) 0.07 10*3/UL; EOSINOPHILS % (AUTO) 0.4 % (0-8); Hemoglobin [HGB] 13.4 g/dL (12.0-16.0); MEAN CORPUSCULAR HEMOGLOBIN 30.6 PG (27-31); MEAN CORPUSCULAR HGB CONC 35.3 g/dL (33-37); MEAN CORPUSCULAR VOLUME 86.8 FL (81-99); MEAN PLATELET VOLUME 10.2 FL (7.4-12.2); MONOCYTES # (AUTO) 1.13 10*3/UL (0.3-0.8); MONOCYTES % (AUTO) 7.2 % (5-15); NEUTROPHILS % (AUTO) 78.5 % (50-80); RED BLOOD COUNT 4.38 10^6/uL (4.20-5.40)
[2018-03-10 18:38] LABS: PLATELET MORPHOLOGY COMMENT NORMAL MORPHOLOGY (NORM); RBC MORPHOLOGY COMMENT NORMAL MORPHOLOGY (NORM); WBC MORPHOLOGY COMMENT NORMAL MORPHOLOGY (NORM)
[2018-03-10] MEDS ORDERED: OXYTOCIN 10 UNIT/1 ML ONE (19:14)
[2018-03-10] MEDS ORDERED: Lactated Ringers 1,000 ML PRIMARY IV ONE (19:18)
--- NOTE | 2018-03-10 19:29 | CRNA.PROCE ---
Central Neuraxis Block Placemt - - Safety Measures: Time Out Taken, Site Verified - - Type of Block: Subarachnoid Reason for Block: Surgical Moniters Used During Block: EKG, SPO2, NIBP Positioning: Sitting Skin Prep Used: ChloroPrep (Twice) Skin Infiltration - Enter Amount Used in Comment Field: 1% Xylocaine (mL): Yes ( 2 ml) Introducer User: 23 Gauge Spinal Needle Used: 22 Johanne 80 mm (1 dural puncture) Additive Used - Enter Amount Used in Comment Field: Preservative Free Morphine ( mg): Yes (0.15) - - Additional Details: supine with left uterine displacement. Prepped draped and start. Patient reports comfort. Anesthesia Time - Other Weight: 99.427 kg Height: 5 ft 4 in Body Mass Index (BMI): 37.6
[2018-03-10] MEDS: Oxytocin 20 Units + LR 20 UNIT/1,000 ML BAG IV SCH ×2 (21:00→22:44)
[2018-03-10] MEDS ORDERED: DIPH,PERTUSS,TET(ADACEL) VAC/PF 0.5 ML (Tdap) IM ONE (21:27)
[2018-03-10] MEDS ORDERED: ONDANSETRON 4 MG/2 ML VIAL IVP PRN (21:27)
[2018-03-10] MEDS ORDERED: BUTORPHANOL TARTRATE 2 MG/1 ML VIAL IVP PRN (21:27)
[2018-03-10] MEDS ORDERED: LANOLIN HPA 40 GM TUBE TOPICAL PRN (21:27)
[2018-03-10] MEDS ORDERED: FAMOTIDINE 20 MG/2 ML VIAL IVP PRN (21:27)
[2018-03-10] MEDS ORDERED: Nalbuphine Inj 20 MG/ML Ampule IVP PRN (21:27)
[2018-03-10] MEDS ORDERED: CALCIUM CARBONATE 500 MG (TUMS) CHEWABLE TABLET PO PRN (21:27)
[2018-03-10] MEDS ORDERED: Naloxone Inj 0.01 MG, Sodium Chloride 0.9% vial 1 ML IVP PRN ×2 (21:27)
[2018-03-10] MEDS: KETOROLAC 15 MG/1 ML VIAL IVP SCH (22:12)
[2018-03-11] MEDS: Lactated Ringers-OB Dept 1,000 ML PRIMARY IV SCH (00:55)
[2018-03-11] MEDS: D5-LR 1,000 ML PRIMARY IV SCH ×2 (03:50→05:40)
[2018-03-11] MEDS: HYDROcodone-APAP 5 MG -325 MG TABLET PO PRN ×3 (03:52→20:10)
[2018-03-11] MEDS: KETOROLAC 15 MG/1 ML VIAL IVP SCH ×4 (03:53→21:56)
[2018-03-11] MEDS: DOCUSATE 100 MG CAPSULE PO SCH ×2 (09:49→21:57)
[2018-03-11] MEDS: Prenatal Multivitamin Tab 1 TAB TAB PO SCH (09:51)
--- NOTE | 2018-03-11 12:18 | CRNA.PROGR ---
Anesthesia Note - Progress Notes Anesthesia Progress Note: Up in chair, visiting with family. Describes small amount of puritis overnight. One episode of emesis shortly post , but no more. States pain well controlled. Denies headache or backache. No apparent anesthetic difficulties.
[2018-03-11] MEDS ORDERED: Lactated Ringers 1,000 ML PRIMARY IV ONE (12:39)
--- NOTE | 2018-03-11 13:45 | OB.PROGRES ---
Subjective Post Day: 1 Pain Management: IV Toradol, Dermorph still active Martel Catheter: No Flatus: No Lochia Color: Rubra/Red Small 10-25 ml Diet: Regular Feeding Method: Exculsively Ambulating: Yes Concerns / Additional Information: Patient states that she feels well. The patient has been up and around this morning. She states she does not sleep well last night. Objective - General General Appearance: POSITIVE: No Acute Distress, Cooperative - Cardiovacular Cardiovascular Exam: POSITIVE: Tachycardia Edema: +1 Pedal Edema Extremities: Negative Bret's - Bilaterally - Respiratory Respiratory Exam: POSITIVE: Clear to Auscultation - Bilaterally - Abdomen Bowel Sounds: Hypoactive Abdominal Wound Assessment: Silverlone Dressing, Well Approximated - Fundus/Lochia/Perineum Uterus Consistency: Firm Assesstment / Plan Assessment / Plan: Postoperative day #1 status post primary low transverse section. The patient is slightly tachycardic. I do not see the blood work from this morning in the patient's record. I will check with the lab. The patient states that she feels well and has been active. Plan: I encouraged the patient to get some sleep and rest and not be quite as active. I explained that the Durmorph from the spinal may be still active and that once it resolves, she may have increased pain. Patient expressed understanding and would have decreased activity. I will check on the patient's labs that I ordered for this morning. If they were not drawn, I will have them draw them now. Into new to observe closely.
[2018-03-11 16:06] LABS: Hematocrit [HCT] 36.5 % (37.0-47.0); Hemoglobin [HGB] 12.7 g/dL (12.0-16.0); MEAN CORPUSCULAR HEMOGLOBIN 30.9 PG (27-31); MEAN CORPUSCULAR HGB CONC 34.8 g/dL (33-37); MEAN CORPUSCULAR VOLUME 88.8 FL (81-99); MEAN PLATELET VOLUME 10.4 FL (7.4-12.2); RED BLOOD COUNT 4.11 10^6/uL (4.20-5.40)
[2018-03-11 16:37] LABS: BLOOD UREA NITROGEN 6 mg/dL (7-22); SERUM ALBUMIN 2.7 g/dL (3.5-4.8); Uric Acid 4.6 mg/dl (2.5-6.2)
--- NOTE | 2018-03-11 18:26 | OB.PROGRES ---
Assesstment / Plan Assessment / Plan: The patient's postop labs look okay except for the patient's LDH was elevated which could signify hemolysis. And I ordered a gestational hypertension panel secondary to her preeclampsia. Patient's platelets were normal, liver function tests were normal and creatinine was normal. H&H was 12 and 36 postoperatively. I would like to check another gestational hypertension panel tomorrow around noon. We will continue to observe the patient closely.
[2018-03-12] MEDS: HYDROcodone-APAP 5 MG -325 MG TABLET PO PRN ×4 (03:45→19:01)
[2018-03-12] MEDS: IBUPROFEN 800 MG TABLET PO SCH ×3 (03:46→21:18)
[2018-03-12] MEDS: DOCUSATE 100 MG CAPSULE PO SCH ×2 (08:22→21:18)
[2018-03-12] MEDS: Prenatal Multivitamin Tab 1 TAB TAB PO SCH (08:22)
[2018-03-12 08:55] LABS: Hematocrit [HCT] 35.3 % (37.0-47.0); Hemoglobin [HGB] 11.8 g/dL (12.0-16.0); MEAN CORPUSCULAR HEMOGLOBIN 30.2 PG (27-31); MEAN CORPUSCULAR HGB CONC 33.4 g/dL (33-37); MEAN CORPUSCULAR VOLUME 90.3 FL (81-99); MEAN PLATELET VOLUME 10.3 FL (7.4-12.2); RED BLOOD COUNT 3.91 10^6/uL (4.20-5.40)
--- NOTE | 2018-03-12 09:00 | OB.PROGRES ---
Subjective Post Day: 2 Pain Management: PO Martel Catheter: No Flatus: Yes Lochia Color: Serosa/Brown Scant < 10 ml Diet: Regular [place] Feeding Method: Exculsively Ambulating: Yes Concerns / Additional Information: The patient states she feels well. Slightly more sore than yesterday but doing well. Has not showered yet. Would like her IV out prior to showering. The patient would like to go home today. Objective - General General Appearance: POSITIVE: No Acute Distress, Cooperative - Cardiovacular Cardiovascular Exam: POSITIVE: RRR Edema: +1 Pedal Edema Extremities: Negative Bret's - Bilaterally - Respiratory Respiratory Exam: POSITIVE: Clear to Auscultation - Bilaterally - Abdomen Bowel Sounds: Present Abdominal Wound Assessment: Silverlone Dressing Other Abdominal Exam Details: Soft, no guarding or rebound Assesstment / Plan Assessment / Plan: Assessment: Postoperative day #2 status post primary low transverse section at 37 weeks for preeclampsia. Patient underwent cervical ripening with 2 doses of Cytotec and had significant contractions but were not really painful but the cervix did not change significantly. With the patient's mother's history of having 2 prolonged inductions of labor and having for sections and no vaginal deliveries, the patient opted for section. Patient has done well. Afebrile and ambulating. The patient did have an elevated LDH yesterday and repeat labs are currently pending. Plan: The patient would like to go home today. Usually if patients have their surgery in the evening then I would discharge the patient on postoperative day # 3 instead of postoperative day #2. The patient is only 36 hours plus out from her section. I will wait for the lab results and to determine how the patient does today and then perhaps discharge the patient later today. I will go ahead and prescribe the outpatient medications.
[2018-03-12 09:13] LABS: BLOOD UREA NITROGEN 5 mg/dL (7-22); SERUM ALBUMIN 2.9 g/dL (3.5-4.8); Uric Acid 5.2 mg/dl (2.5-6.2)
--- NOTE | 2018-03-12 09:24 | DCSUMMARY ---
Hospitalization Summary Admit Date: 03/09/18 Discharge Date: 03/13/18 Primary Diagnosis:: IUP 37 weeks Secondary Diagnosis:: Preeclampsia without signs or symptoms of severe preeclampsia Unsuccessful cervical ripening Patient desired primary low transverse section Primary Surgery and Date: 03/10/2018. Primary low transverse section Delivery Type: Hospital Course: The patient was admitted to the hospital and underwent cervical ripening with 2 doses of Cytotec. Her cervix did not change much. The baby's head was not engaged. The patient elected for a primary low transverse section. The patient underwent a primary low transverse section. / Postop Complications: None apparent Complications: Initially, the baby was on bubble CPAP for about 5 hours. Exam - Vitals Vital Signs: Vital Signs Temperature 98.3 F Temperature Source Oral Pulse Rate [Pulse Oximeter] 88 Pulse Rate 90 Respiratory Rate 16 Blood Pressure [Right Arm] 106/59 Blood Pressure 124/62 Pulse Ox 93 Oxygen Flow Rate room air Oxygen Delivery Method Room Air Height 5 ft 4 in Weight 219 lb 3.2 oz
[2018-03-12] MEDS: D5-LR 1,000 ML PRIMARY IV SCH ×4 (19:01→19:13)
[2018-03-13] MEDS: HYDROcodone-APAP 5 MG -325 MG TABLET PO PRN ×2 (00:45→05:12)
[2018-03-13] MEDS: IBUPROFEN 800 MG TABLET PO SCH (05:12)
--- NOTE | 2018-03-13 09:10 | OB.PROGRES ---
Subjective Post Day: 3 Pain Management: PO Martel Catheter: No Flatus: Yes Lochia Color: Serosa/Brown Scant < 10 ml Diet: Regular [place] Feeding Method: / Bottle Ambulating: Yes Concerns / Additional Information: The patient states she is doing well. Breast and bottlefeeding. Supplementing. Would like to go home. Feels well. The patient does have some more swelling but the patient believes that is secondary to being up so much with the baby. The swelling is in her lower extremities. Objective - General General Appearance: POSITIVE: No Acute Distress, Cooperative - Cardiovacular Cardiovascular Exam: POSITIVE: RRR Edema: +2 Pedal Edema Extremities: Negative Bret's - Bilaterally - Respiratory Respiratory Exam: POSITIVE: Clear to Auscultation - Bilaterally - Abdomen Bowel Sounds: Present Abdominal Wound Assessment: Silverlone Dressing, Well Approximated Other Abdominal Exam Details: No guarding or rebound Assesstment / Plan Assessment / Plan: Assessment: Postoperative day #3 status post primary low transverse section doing well. H&H good. Afebrile. Blood pressures normal. Plan: Discharge home today. See discharge plan.
[2018-03-13] MEDS: DOCUSATE 100 MG CAPSULE PO SCH (09:17)
[2018-03-13] MEDS: Prenatal Multivitamin Tab 1 TAB TAB PO SCH (09:17)
[2018-03-13 11:06] VITALS: BP 129/73; RESP 19; TEMP 98.1; O2SAT 98
== END 2018-03-13 10:30 | disposition home or self-care (01) | DRG 788 ==
LOC: OBIP 14:58
PROVIDERS: ADMIT Obstetrics & Gynecology; ATTEND Obstetrics & Gynecology